=== PATIENT | male | born 1995 | race American Indian/Alaskan Native ===

== ENCOUNTER 2020-01-12 10:53 | Emergency (ER) | payer SELFPAY ==
[2020-01-12] MEDS ORDERED: ACETAMINOPHEN 325 MG TAB PO ONE ×2 (10:59→11:10)
[2020-01-12] MEDS ORDERED: ACETAMINOPHEN 325 MG TAB ONE (11:02)
[2020-01-12] MEDS ORDERED: PENICILLIN G BENZATHINE 1.2 MILLION UNIT/2 ML INJ IM ONE (11:56)
[2020-01-12] MEDS ORDERED: dexAMETHasone 20 MG/5 ML VIAL IM ONE (12:08)
--- NOTE | 2020-01-12 12:13 | Emergency Department Report ---
ED ENT HPI - General Chief complaint: Sore Throat Stated complaint: VOMIT BLOOD/FLU SYM Time Seen by Provider: 01/12/20 11:22 Source: patient Mode of arrival: Ambulatory Limitations: No Limitations - History of Present Illness Initial comments: Patient is a 24-year-old F [place] male who states for the past 2 days he has had a sore throat. Patient also has been having some vomiting secondary to gagging while swallowing. There was some streaks of blood in his vomit. Patient states the pain started about 2 days ago and is worse on the right side of the throat. Pain is 10 out of 10 according to the patient. Although patient is resting comfortably. Patient denies productive cough diarrhea body aches or neck stiffness. - Related Data Previous Rx's Medication Instructions Recorded Last Taken Type HYDROcodone/APAP 5-325 [[place] 1 each PO Q6HR PRN #14 tablet 01/12/20 Unknown Rx 5/325] predniSONE [Deltasone] 20 mg PO QDAY #5 tab 01/12/20 Unknown Rx Allergies Allergy/AdvReac Type Severity Reaction Status Date / Time No Known Allergies Allergy Verified 01/12/20 11:13 ED Dental HPI - General Chief complaint: Sore Throat Stated complaint: VOMIT BLOOD/FLU SYM Time Seen by Provider: 01/12/20 11:22 Source: patient Mode of arrival: Ambulatory Limitations: No Limitations - Related Data Previous Rx's Medication Instructions Recorded Last Taken Type HYDROcodone/APAP 5-325 [[place] 1 each PO Q6HR PRN #14 tablet 01/12/20 Unknown Rx 5/325] predniSONE [Deltasone] 20 mg PO QDAY #5 tab 01/12/20 Unknown Rx Allergies Allergy/AdvReac Type Severity Reaction Status Date / Time No Known Allergies Allergy Verified 01/12/20 11:13 ED Review of Systems ROS: Stated complaint: VOMIT BLOOD/FLU SYM Other details as noted in HPI Comment: All other systems reviewed and negative ED Past Medical Hx - Past Medical History Previous Medical History?: No - Surgical History Past Surgical History?: No - Social History Smoking Status: Never Smoker Substance Use Type: None - Medications Home Medications: Home Medications Medication Instructions Recorded Confirmed Last Taken Type HYDROcodone/APAP 5-325 [[place] 1 each PO Q6HR PRN #14 tablet 01/12/20 Unknown Rx 5/325] predniSONE [Deltasone] 20 mg PO QDAY #5 tab 01/12/20 Unknown Rx ED Physical Exam - General Limitations: No Limitations General appearance: alert, in no apparent distress - Head Head exam: Present: atraumatic, normocephalic - Eye Eye exam: Present: normal appearance - ENT ENT exam: Present: mucous membranes moist - Expanded ENT Exam Expanded Mouth exam: Present: normal external inspection. Absent: drooling, trismus, muffled voice Throat exam: Positive: tonsillar erythema, tonsillar exudate - Neck Neck exam: Present: normal inspection, lymphadenopathy (Anterior cervical) - Respiratory Respiratory exam: Present: normal lung sounds bilaterally. Absent: respiratory distress - Cardiovascular Cardiovascular Exam: Present: regular rate, normal rhythm, normal heart sounds. Absent: systolic murmur, diastolic murmur, rubs, gallop - GI/Abdominal GI/Abdominal exam: Present: soft, normal bowel sounds. Absent: distended, tenderness, guarding, rebound - Rectal Rectal exam: Present: deferred - Extremities Exam Extremities exam: Present: normal inspection - Back Exam Back exam: Present: normal inspection - Neurological Exam Neurological exam: Present: alert, oriented X3 - Psychiatric Psychiatric exam: Present: normal affect, normal mood - Skin Skin exam: Present: warm, dry, intact, normal color. Absent: rash ED Course Vital Signs 01/12/20 10:58 Temperature 103.0 F H Pulse Rate 120 H Respiratory 18 Rate Blood Pressure 127/78 O2 Sat by Pulse 97 Oximetry ED Medical Decision Making - Medical Decision Making Patient meets [facility] criteria for empiric treatment with antibiotics for his pharyngitis. Patient given Bicillin and Decadron to help with the swelling. Patient is stable and his appearance and does not appear to require IV antibiotics or IV fluids at this time however the patient is tonsillar swelling and exudate does warrant emergent treatment. Patient will be discharged home with medications for symptomatic relief. Critical care attestation.: If time is entered above; I have spent that time in minutes in the direct care of this critically ill patient, excluding procedure time. ED Disposition Clinical Impression: Exudative pharyngitis Disposition: - TO HOME OR SELFCARE Is pt being admited?: No Does the pt Need Aspirin: No Condition: Stable Instructions: Pharyngitis (ED) Referrals: PRIMARY CARE, [Primary Care Provider] - 3-5 Days Time of Disposition: 12:13
[2020-01-12 12:38] VITALS: BP 121/74
== END 2020-01-12 12:38 | disposition home or self-care (01) ==
LOC: ED 10:53
DX: J02.8 Acute pharyngitis due to other specified organisms (principal); Z79.899 Other long term (current) drug therapy
CPT/HCPCS: 96372; 99282; J0561; J1100

== ENCOUNTER 2020-01-15 11:53 | Emergency (ER) | payer SELFPAY | END 2020-01-15 17:37 | disposition left against medical advice (07) | LOC: ED 11:53 | DX: R05 Cough (principal); Z53.21 Procedure and treatment not carried out due to patient leaving prior to being seen by health care provider ==

== ENCOUNTER 2021-10-15 18:56 | Emergency (ER) | payer SELFPAY ==
[2021-10-15 19:02] VITALS: BP 120/82
[2021-10-15] MEDS ORDERED: ONDANSETRON 4 MG ODT TAB PO ONE (19:09)
[2021-10-15] MEDS ORDERED: LIDOCAINE-MPF (1%) 10 MG/1 ML VIAL 5 ML INFILTRATI ONE (19:09)
[2021-10-15] MEDS ORDERED: AZITHROMYCIN 250 MG TAB PO ONE (19:09)
[2021-10-15] MEDS ORDERED: metroNIDAZOLE 500 MG TAB PO ONE (19:19)
--- NOTE | 2021-10-15 19:19 | Emergency Department Report ---
ED Male HPI - General Chief complaint: Urogenital-Male Stated complaint: POSS STD Time Seen by Provider: 10/15/21 19:08 Source: patient Mode of arrival: Ambulatory Limitations: No Limitations - History of Present Illness Initial comments: Chief complaint: I have been exposed to chlamydia and trichomonas HPI: Is a 26-year-old male with SF medical history is had multiple sexual partners. He has had multiple sexual partners over the past several weeks. He has been exposed to chlamydia and trichomonas. He does not have any symptoms. He denies Dysuria. Denies abdominal pain, Denies urethral discharge. MD Complaint: other (STD exposure) -: unknown Severity scale (0 -10): 0 denies other symptoms - Related Data Previous Rx's Medication Instructions Recorded Last Taken Type HYDROcodone/APAP 5-325 [[place] 1 each PO Q6HR PRN #14 tablet 01/12/20 Unknown Rx 5/325] predniSONE [Deltasone] 20 mg PO QDAY #5 tab 01/12/20 Unknown Rx predniSONE [Deltasone] 60 mg PO QDAY #6 tab 05/24/20 Unknown Rx valACYclovir [Valtrex] 500 mg PO BID 5 Days #10 tab 05/24/20 Unknown Rx Allergies Allergy/AdvReac Type Severity Reaction Status Date / Time No Known Allergies Allergy Verified 01/12/20 11:13 ED Review of Systems ROS: Stated complaint: POSS STD Other details as noted in HPI Constitutional: denies: fever Respiratory: denies: cough, shortness of breath Cardiovascular: denies: chest pain Gastrointestinal: denies: abdominal pain Genitourinary: denies: urgency, dysuria, frequency, hematuria, discharge, testicular pain, testicular mass ED Past Medical Hx - Past Medical History Previous Medical History?: No - Social History Smoking Status: Never Smoker Substance Use Type: None - Medications Home Medications: Home Medications Medication Instructions Recorded Confirmed Last Taken Type HYDROcodone/APAP 5-325 [[place] 1 each PO Q6HR PRN #14 tablet 01/12/20 Unknown Rx 5/325] predniSONE [Deltasone] 20 mg PO QDAY #5 tab 01/12/20 Unknown Rx predniSONE [Deltasone] 60 mg PO QDAY #6 tab 05/24/20 Unknown Rx valACYclovir [Valtrex] 500 mg PO BID 5 Days #10 tab 05/24/20 Unknown Rx ED Physical Exam - General Limitations: No Limitations General appearance: alert, in no apparent distress - ENT ENT exam: Present: mucous membranes moist - Respiratory Respiratory exam: Absent: respiratory distress - Cardiovascular Cardiovascular Exam: Present: regular rate, normal rhythm, normal heart sounds - Neurological Exam Neurological exam: Present: alert, oriented X3 - Psychiatric Psychiatric exam: Present: normal affect, normal mood - Skin Skin exam: Present: warm, dry, intact, normal color ED Course Vital Signs 10/15/21 19:00 Temperature 97.7 F Pulse Rate 78 Respiratory 15 Rate Blood Pressure 120/82 [Right] O2 Sat by Pulse 95 Oximetry ED Medical Decision Making - Medical Decision Making STD exposure: Patient treated for chlamydia, gonorrhea and trichomonas with ceftriaxone IM, p.o. doxycycline, p.o. metronidazole. Patient also received Zofran ODT. Strongly recommended condom use. Strongly recommended outpatient HIV testing. Critical care attestation.: If time is entered above; I have spent that time in minutes in the direct care of this critically ill patient, excluding procedure time. ED Disposition Clinical Impression: Exposure to sexually transmitted disease (STD) Disposition: HOME / SELF CARE / HOMELESS Is pt being admited?: No Does the pt Need Aspirin: No Condition: Stable Instructions: Safe Sex Referrals: ROGERS MANUEL MD [Staff Physician] - 3-5 Days
== END 2021-10-15 20:17 | disposition home or self-care (01) ==
LOC: ED 18:56
DX: Z20.2 Contact with and (suspected) exposure to infections with a predominantly sexual mode of transmission (principal)
CPT/HCPCS: 96372; 99282; J0696; J3490; Q0162